=== PATIENT | male | born 1955 | race American Indian/Alaskan Native ===

== ENCOUNTER 2017-08-19 07:04 | Inpatient (IN) | payer MEDICARE ==
--- NOTE | 2017-08-19 08:05 | ED PDOC ---
HPI: Psych/Substance Abuse Time Seen by Provider: 08/19/17 07:48 Chief Complaint (Nursing): Psychiatric Evaluation Chief Complaint (Provider): Psychiatric Evaluation ED Caveat: Uncooperative History Per: Patient History/Exam Limitations: no limitations Onset/Duration Of Symptoms: Days (x 1) Current Symptoms Are (Timing): Still Present Additional History Per: Law Enforcement Additional Complaint(s): 61 year old male brought in by police for psychiatric evaluation, onset today. Pt called insurance company stating that he wanted to kill himself and came to ED for psychiatric evaluation. History is limited due to pt being uncooperative. PMD: none provided Past Medical History Reviewed: Historical Data, Nursing Documentation, Vital Signs Vital Signs: Last Vital Signs Temp 98.1 F 08/19/17 07:28 Pulse 76 08/19/17 07:28 Resp 17 08/19/17 07:28 BP 100/61 08/19/17 07:28 Pulse Ox 97 08/19/17 07:28 - Medical History PMH: Anxiety, Bipolar Disorder, Depression, Diabetes, HTN Denies: Hepatitis, HIV, Chronic Kidney Disease, Seizures, Sexually Transmitted Disease - Surgical History Surgical History: No Surg Hx - Family History Family History: States: Unknown Family Hx - Immunization History Hx Tetanus Toxoid Vaccination: No Hx Influenza Vaccination: No Hx Pneumococcal Vaccination: No - Home Medications Home Medications: Ambulatory Orders Medication Instructions Recorded ASA/Oxycodone HCl/Oxycodone 1 tab PO Q8 #10 tab 11/01/14 [Percodan 325 mg-4.5 mg-0.38 mg] - Allergies Allergies/Adverse Reactions: Allergies Allergy/AdvReac Type Severity Reaction Status Date / Time No Known Allergies Allergy Verified 08/19/17 07:32 Review of Systems ROS Statement: Except As Marked, All Systems Reviewed And Found Negative Psych: Positive for: Suicidal ideation Physical Exam - Reviewed Nursing Documentation Reviewed: Yes Vital Signs Reviewed: Yes - Physical Exam Appears: Positive for: Non-toxic, No Acute Distress Head Exam: Positive for: ATRAUMATIC, NORMOCEPHALIC Skin: Positive for: Normal Color, Warm, Dry Eye Exam: Positive for: EOMI, Normal appearance, PERRL Cardiovascular/Chest: Positive for: Regular Rate, Rhythm Respiratory: Positive for: Normal Breath Sounds Gastrointestinal/Abdominal: Positive for: Soft. Negative for: Tenderness Extremity: Positive for: Normal ROM Neurologic/Psych: Positive for: Alert, Other (Agitated and yelling. ). Negative for: Oriented - Laboratory Results Result Diagrams: 08/19/17 11:00 08/19/17 11:00 - ECG O2 Sat by Pulse Oximetry: 97 (RA) Pulse Ox Interpretation: Normal Medical Decision Making Medical Decision Making: Time: 07:54 Initial Plan: --EKG --Alcohol serum --CMP --Urine drug --CBC --Chest xray --Ativan 2 mg IM --Haldol 5 mg IM --1:1 observation Medical history is unknown, although patient states he has previous history of depression. He is currently awake and agitated, yelling at staff and trying to kick them. Reorientation was unsuccessful. Patient was restrained. Medically stable for psychiatric admission Time: 00:35 CXR FINDINGS: LUNGS: No active pulmonary disease. PLEURA: No significant pleural effusion identified, no pneumothorax apparent. CARDIOVASCULAR: Heart appears borderline enlarged. Aorta is ectatic and uncoiled. . OSSEOUS STRUCTURES: No significant abnormalities. VISUALIZED UPPER ABDOMEN: Normal. OTHER FINDINGS: None. IMPRESSION: No acute infiltrates Scribe Attestation: Documented by Matilda Fuller, acting as a scribe for Vega Gasca MD Provider Scribe Attestation: All medical record entries made by the Scribe were at my direction and personally dictated by me. I have reviewed the chart and agree that the record accurately reflects my personal performance of the history, physical exam, medical decision making, and the department course for this patient. I have also personally directed, reviewed, and agree with the discharge instructions and disposition. Disposition - Clinical Impression Clinical Impression: Bipolar disorder, Depression - Patient ED Disposition Is Patient to be Admitted: Yes - Disposition Disposition Time: 13:33 Condition: FAIR Forms: [employer] ([place]) - Pt Status Changed To: Hospital Disposition Of: Inpatient - Admit Certification Admit to Inpatient:: After my assessment, the patient will require hospitalization for at least two midnights. This is because of the severity of symptoms shown, intensity of services needed, and/or the medical risk in this patient being treated as an outpatient. - POA Present On Arrival: None
[2017-08-19 11:14] LABS: BASO % 0.7 % (0.0-2.0); EOS # 0.1 K/uL (0.0-0.7); EOS % 2.2 % (0.0-4.0); HEMOGLOBIN 14.3 g/dL (12.0-18.0); LYMPH # 2.3 K/uL (1.0-4.3); LYMPH % 40.3 % (20.0-40.0); MEAN CELL VOLUME 92.8 fl (80.0-94.0); MEAN CORPUSCULAR HEMOGLOBIN 31.6 pg (27.0-31.0); MONO # 0.4 K/uL (0.0-0.8); MONO % 7.2 % (0.0-10.0); NEUT # 2.8 K/uL (1.8-7.0); NEUT % 49.6 % (50.0-75.0); NRBC % 0.1 % (0.0-0.0); RBC 4.54 Mil/uL (4.40-5.90); RED CELL DISTRIBUTION WIDTH 14.1 % (11.5-14.5); WHITE BLOOD COUNT 5.6 K/uL (4.8-10.8)
[2017-08-19 11:24] LABS: ALB/GLOB RATIO 1.3 (1.0-2.1); ALBUMIN 4.1 g/dL (3.5-5.0); ALT/SGPT 56 U/L (21-72); AST/SGOT 37 U/L (17-59); BLOOD UREA NITROGEN 7 mg/dl (9-20); CALCIUM 8.7 mg/dL (8.4-10.2); GFR AFRICAN-AMERICAN > 60; GFR NON-AFRICAN AMERICAN > 60
--- NOTE | 2017-08-19 12:37 | RAD ---
HISTORY: cough COMPARISON: Comparison made with chest radiograph 11/01/2014. FINDINGS: LUNGS: No active pulmonary disease. PLEURA: No significant pleural effusion identified, no pneumothorax apparent. CARDIOVASCULAR: Heart appears borderline enlarged. Aorta is ectatic and uncoiled. . OSSEOUS STRUCTURES: No significant abnormalities. VISUALIZED UPPER ABDOMEN: Normal. OTHER FINDINGS: None. IMPRESSION: No acute infiltrates
[2017-08-19 14:28] LABS: BARBITURATES, UR NEGATIVE (NEGATIVE); BENZODIAZEPINES, UR NEGATIVE (NEGATIVE); OPIATES, UR NEGATIVE (NEGATIVE); PHENCYCLIDINE, UR NEGATIVE (NEGATIVE)
[2017-08-19 15:14] VITALS: O2SAT 98
--- NOTE | 2017-08-19 18:05 | PCM.BM ---
<Crystal Schmidt - Last Filed: 08/19/17 18:05> Treatment Plan Problems - Problems identified on initial assessmt HOPELESSNESS/HELPLESSNESS Date Initiated: 08/19/17 Time Initiated: 18:08 Assessment reference: NA Status: Active Treatment assets and liabiliti Patient Assests: cooperative, educated, resourceful, self-reliant, ADL independent, negotiates basic needs, cognitively intact Patient Liabilities: live alone, poor support system, relationship conflicts, dietary restrictions, medical problems - Milieu Protocol Maintain good personal hygiene: daily Encourage regular showers, daily Remind patient to perform daily oral care, daily Assist patient to perform ADL's Conduct patient checks and document Observation sheet: Q15 minutes Maintain personal safety: every shift Educate patient to report safety concerns to staff, every shift Monitor environment for contraband/sharps Medication safety: Monitor for expected outcome, potential side effects: every shift, Assess barriers to learning: every shift, Assess readiness for medication education: every shift <Delphine Camara - Last Filed: 08/20/17 16:37> Treatment assets and liabiliti Patient Assests: adapts well, cooperative, educated, insightful, resourceful, self-reliant, ADL independent, negotiates basic needs, good past tx response, cognitively intact Patient Liabilities: live alone, poor support system, relationship conflicts, dietary restrictions, medical problems Family Contact Family involvement: Famliy/SO not involved Family contact: Patient declines to allow family contact at present - Outside Agency Agency [facility] involvment: Other Agency contact name: Dr. Prashant Hernandez Agency contact number: [phone] - Goals for Treatment Patient goals for treatment: Patient to continue stabilization on 3NP through medication management and group/supportive therapy. Patient to be encouraged to attend groups regularly to promote self-awareness, socialization, and improve insight, coping skills and self-esteem. Patient to be provided with referral for appropriate level of aftercare to reduce risk of future hospitalizations and ensure safety in the community. Discharge/Continuing Care - Education Needs Education Needs: Patient Medication, Patient Coping Skills, Patient Anger Management skills, Patient Community resources, Patient Aftercare Safety Plan - Discharge Discharge Criteria: Tolerates medication w/o severe side effects, Free of Suicidal thoughts, Free of agitation, Normal sleep pattern, Ability to care for self, Reduction of target symptoms Discharge to:: Home <Roshan Edmonds Last Filed: 08/22/17 10:39> Discharge/Continuing Care - Additional Comments 08/22/17 10:39 Pt is goal and discharge oriented. Pt appeared to have self-awareness into his reyna. Pt was fixed on superficial matters such as his heat that he left on at home and the food/beverages that are available to him on the unit. Pt was able to speak about the self-work that he does at home with DBT and CBT techniques and a diary that he keeps. Pt reported that he will begin seeing a DBT practitioner later this month and readily recalled his next appointment with his psychiatrist. - Treatment Team Participation Discussed with Family/SO: No Was Patient/Family/SO present at Treatment Team Meeting: Yes <Maximo Franklin - Last Filed: 08/22/17 11:28> - Diagnosis (1) Depression Status: Acute Interventions: 08/22/17 11:28 psychotherapy pharmacotherapy
[2017-08-19] MEDS ORDERED: Alum-Mag Hydrox-Simethicone Susp (30 mL) PO PRN (20:09)
[2017-08-19] MEDS ORDERED: Magnesium Hydroxide Susp 30 ml UD PO PRN (20:09)
[2017-08-19] MEDS ORDERED: DiphenhydrAMINE 50 mg/ml Inj IM PRN (20:09)
[2017-08-19] MEDS ORDERED: Patient's Own Med (Metformin Er [Glucophage Xr] 750 mg) PO SCH (20:15)
[2017-08-19] MEDS: GlipiZIDE 5 mg SR Tab PO SCH (21:26)
[2017-08-19] MEDS: Insulin Lispro (humaLOG) 100 Units/ml Inj SC SCH (21:33)
[2017-08-19] MEDS ORDERED: Patient's Own Med (Zolpidem [Ambien] 10 MG) PO SCH (22:00)
--- NOTE | 2017-08-20 08:33 | CARD ---
APPROVED REPORT EKG Measurement Heart [id number] <Conclusion> Normal sinus rhythm Anteroseptal infarct, age undetermined Abnormal ECG artefact present-recommend repeat
[2017-08-20 08:41] LABS: T4 6.39 ug/dl (5.5-11.0)
[2017-08-20] MEDS: GlipiZIDE 5 mg SR Tab PO SCH ×2 (10:22→17:28)
[2017-08-20] MEDS: Insulin Lispro (humaLOG) 100 Units/ml Inj SC SCH ×4 (10:41→21:12)
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
[2017-08-20 19:30] VITALS: PULSE 69
[2017-08-21] MEDS: Insulin Lispro (humaLOG) 100 Units/ml Inj SC SCH ×4 (08:55→21:00)
[2017-08-21] MEDS: GlipiZIDE 5 mg SR Tab PO SCH ×2 (11:16→17:16)
[2017-08-21 13:48] VITALS: RESP 18
--- NOTE | 2017-08-21 14:36 | PCM.PYCHPN ---
Psychiatric Progress Note - Psychiatric Progress Note Patient seen today, length of contact: pt evaluated discussed with team chart reviewed Patient Chief Complaint: I know I have to practice my therapy skills Problems Identified/Issues Discussed: pt reported feeling less depressed, and less anxious. presenting with brighter affect,denied any current suicidal or homicidal ideations pt attending groups and interacting with other peers no reported side effects of medications Medical Problems: diagnosis of bipolar since age 21 previous suicidal attempts by cutting wrist and overdose inpatient hopitalizations at [place] and [facility] DSM 5 Symptoms Update: bipolar I disorder depressed Medication Change: Yes (increase abilify) Medical Record Reviewed: Yes Mental Status Examination - Cognitive Function Orientation: Person, Situation Attention: WNL Concentration: WNL Association: WNL Fund of Knowledge: WNL - Mood Mood: Depressed, Anxious - Affect Affect: Constricted - Speech Speech: Appropriate - Formal Thought Process Formal Thought Process: No Impairment, Circumstantial Psychotic Thoughts and Behaviors: denied any perceptual disturbances, non elicited - Suicidal Ideation Suicidal Ideation: No - Homicidal Ideation Homicidal Ideation: No Goal/Treatment Plan - Goal/Treatment Plan Need for Continued Stay: Severe depression anxiety, Discharge may exacerbated symptoms Progress Toward Problem(s) and Goals/Treatment Plan: Increase T ABILIFY to 5MG WITH PLAN TO UPTITRATE REMERON 30MG KLONOPIN 0.5MG TID GROUP AND SUPPORTIVE THERAPY Estimated Date of D/C: 08/22/17
[2017-08-21 18:07] VITALS: TEMP 97.9
[2017-08-22] MEDS: Insulin Lispro (humaLOG) 100 Units/ml Inj SC SCH ×2 (08:46→13:18)
[2017-08-22] MEDS: GlipiZIDE 5 mg SR Tab PO SCH (08:56)
[2017-08-22 09:03] VITALS: BP 156/104
--- NOTE | 2017-08-22 11:35 | PCM.PYCHDC ---
Mental Status Examination - Mental Status Examination Orientation: Person, Place, Situation Memory: Intact Mood: Neutral Affect: Broad Speech: Appropriate Attention: WNL Concentration: WNL Association: WNL Fund of Knowledge: WNL Formal Thought Process: No Impairment Description of patient's judgement and insight: good insight and fair judgment Psychotic Thoughts and Behaviors: denied any perceptual disturbances, non elicited Suicidal Ideation: No Current Homicidal Ideation?: No Discharge Summary - Discharge Note Reason for Hospitalization: pt with previous diagnosis of bipolar disorder since age 21, has four previos suicidal attempts and five inpatient hospitalizations, currently following up with private psychaiatrist in the city, pt reported has been increasingly depressed since the holidays feeling lonely and started to isolate himself, poor sleep increased anxiety , lack of pleasure, on day of evaluation pt started having suicidal thoughts to cut his wrist or shoot himself, pt started using alcohol, he then called [facility] help line , stating he has thoughts to commit suiide , police was called and pt was brought to ER in [place] pt was agitaated refusing to stay had to be physically restrained, blood alcohol level was 110 Laboratory Data: Abnormal Lab Results 08/21/17 08/21/17 08/22/17 16:33 20:55 06:38 POC Glucose (mg/dL) 115 H 111 H 139 H Consultations:: List each consultation separately and include: 1. Reason for request. 2. Findings. 3. Follow-up Summary of Hospital Course include:: 1. Description of specific treatment plan utilized for patients during their course of treatmen. 2. Summarize the time- course for resolution of acute symptoms and/or regressed behaviors. 3. Describe issues identified and worked on during hospitalization. 4. Describe medication utilized. 5. Describe medical problems identified and treated. 6. Reassessment of suicide risk Summary of Hospital Course: pt on admission was started on remeron , ambien and citalopram abilify was started as a mood stabilizer and was uptitrated to 5mg pt was cooperative with treatment, engaged in groups no reported side effects of medications discussed with pt skills and tools of DBT for suicidal thoughts and pt was able to verbalize coping plan On discharge, mental ststus was stable , pt denied suicidal or homicidal ideations denied perceptual disturbances pt was not danger to self or othersl - Diagnosis (1) Depression Current Visit: Yes Status: Acute - Final Diagnosis (DSM 5) Condition upon Discharge: FAIR Disposition: HOME/ ROUTINE Follow-up Treatment Plan: Increase T ABILIFY to 5MG WITH PLAN TO UPTITRATE REMERON 30MG KLONOPIN 0.5MG TID GROUP AND SUPPORTIVE THERAPY Prescriptions/Medication Reconciliation: ARIPiprazole [Abilify] 5 mg PO DAILY 30 Days #30 tab Citalopram [celEXA] 40 mg PO DAILY 30 Days #60 tab clonazePAM [Klonopin] 0.5 mg PO TID 3 Days #9 tab Mirtazapine [Remeron] 30 mg PO HS 30 Days #30 tab Zolpidem [Ambien] 10 mg PO HS 3 Days #3 tab - Antipsychotic Medications Pt discharged on 2 or more routine antipsychotic medications: No
== END 2017-08-22 14:26 | disposition home or self-care (01) | DRG 885 ==
LOC: H.ER 07:04 → H.ERHOLD 13:31 → H.PSYCH 15:59
PROVIDERS: ADMIT Psychiatry & Neurology Psychiatry; ATTEND Psychiatry & Neurology Psychiatry
PROC: GZHZZZZ Group Psychotherapy (ICD-10-PCS; principal; 2017-08-19)
PROC: GZ58ZZZ Individual Psychotherapy, Cognitive-Behavioral (ICD-10-PCS; 2017-08-19)
DX: F31.4 Bipolar disorder, current episode depressed, severe, without psychotic features (principal); R45.851 Suicidal ideations; E11.9 Type 2 diabetes mellitus without complications; I10 Essential (primary) hypertension; Z87.891 Personal history of nicotine dependence; I25.2 Old myocardial infarction; Z91.5 Personal history of self-harm

== ENCOUNTER 2018-12-22 05:33 | Observation (INO) | payer MEDICARE ==
--- NOTE | 2018-12-22 05:45 | ED PDOC ---
HPI: Psych/Substance Abuse Time Seen by Provider: 12/22/18 05:39 Chief Complaint (Nursing): Psychiatric Evaluation Chief Complaint (Provider): Suicidal ideation History Per: Patient History/Exam Limitations: no limitations Onset/Duration Of Symptoms: Hrs Current Symptoms Are (Timing): Still Present Suicide/Self Injury Attempted (Context): Ingestion Additional Complaint(s): 63yo male with extensive history including diabetes, hypertesion, bipolar disorder, depression, brought to ER by EMS for evaluation after patient reportedly attempted suicide. Patient currently admits to taking aspirin 1tab 81mg, citalopram 5 tabs 30mg, metoprolol 4 tabs 50 mg, rosvastatin 5 tabs 40mg, taken 2 hours prior to arrival in an attempt to kill himself. Patient states "I want to end it all, I am tired of being sick." He denies any chest pain, vomiting, shortness of breath, or other complaints. No homicidal ideation or hallucinations reported. PMD: [facility]. Carter String[facility] at [facility] Past Medical History Reviewed: Historical Data, Nursing Documentation, Vital Signs Vital Signs: Last Vital Signs Temp 97.8 F 12/22/18 05:37 Pulse 105 H 12/22/18 05:37 Resp 18 12/22/18 05:37 BP 141/79 12/22/18 05:37 Pulse Ox 96 12/22/18 05:37 Primary Care Provider: FAMILY PROVIDER,NO - Medical History PMH: Anxiety, Bipolar Disorder, Depression, Diabetes, HTN (since 1984) Denies: Hepatitis, HIV, Hypercholesterolemia, Chronic Kidney Disease, Seizures, Sexually Transmitted Disease - Surgical History Surgical History: No Surg Hx - Family History Family History: States: Unknown Family Hx - Social History Current smoker - smoking cessation education provided: No Alcohol: Occasional Drugs: Denies - Immunization History Hx Tetanus Toxoid Vaccination: No Hx Influenza Vaccination: No Hx Pneumococcal Vaccination: No - Home Medications Home Medications: Ambulatory Orders Medication Instructions Recorded Aspirin [Aspirin Chewable] 81 mg PO DAILY 08/19/17 Glipizide [Glipizide Xl] 5 mg PO BID 08/19/17 Metoprolol Tartrate [Lopressor] 50 mg PO DAILY 08/19/17 Mirtazapine [Remeron] 30 mg PO HS PRN 08/19/17 Rosuvastatin Calcium [Crestor] 40 mg PO DAILY 08/19/17 Zolpidem [Ambien] 10 mg PO HS PRN 08/19/17 metFORMIN [glucOPHAGE] 750 mg PO BID tab 08/22/17 ARIPiprazole [Abilify] 1 tab PO DAILY 12/22/18 ARIPiprazole [Abilify] 2 mg PO DAILY 12/22/18 Candesartan Cilexetil [Atacand] 12/22/18 Citalopram [celeXA] 3 tab PO DAILY 12/22/18 Clonazepam [Klonopin] 1 tab PO TID 12/22/18 Ezetimibe [Zetia] 1 tab PO DAILY 12/22/18 - Allergies Allergies/Adverse Reactions: Allergies Allergy/AdvReac Type Severity Reaction Status Date / Time No Known Allergies Allergy Verified 08/19/17 07:32 Review of Systems ROS Statement: Except As Marked, All Systems Reviewed And Found Negative Constitutional: Negative for: Fever, Chills Cardiovascular: Negative for: Chest Pain Respiratory: Negative for: Shortness of Breath Gastrointestinal: Negative for: Vomiting Psych: Positive for: Suicidal ideation Physical Exam - Reviewed Nursing Documentation Reviewed: Yes Vital Signs Reviewed: Yes - Physical Exam Appears: Positive for: Uncomfortable Head Exam: Positive for: ATRAUMATIC, NORMAL INSPECTION, NORMOCEPHALIC Skin: Positive for: Normal Color Eye Exam: Positive for: Normal appearance ENT: Positive for: Normal ENT Inspection Neck: Positive for: Supple Cardiovascular/Chest: Positive for: Regular Rate, Rhythm Respiratory: Positive for: Normal Breath Sounds. Negative for: Respiratory Distress Gastrointestinal/Abdominal: Positive for: Normal Exam, Soft Back: Positive for: Normal Inspection Extremity: Positive for: Normal ROM Neurological/Psych: Positive for: Awake, Alert, Mood/Affect (flat affect), interior design consultant II-XII. Negative for: Facial Droop - Laboratory Results Result Diagrams: 12/22/18 06:19 12/22/18 06:16 - ECG ECG: Positive for: Interpreted By Me, Viewed By Me ECG Rhythm: Positive for: Sinus Tachycardia Interpretation Of ECG: QTc 471 Rate: 102 O2 Sat by Pulse Oximetry: 96 (RA) Pulse Ox Interpretation: Normal - Radiology X-Ray: Read By Radiologist X-Ray Interpretation: No Acute Disease - Critical Care Total Time (In Min): 45 Medical Decision Making Medical Decision Making: Impression: Suicidal ideation, intentional ingestion Plan: -- RN Jeaneth to call poison control -- Labs -- Urinalysis -- 1:1 observation initiated for patient safety given suicidality 06:26 RN Jeaneth spoke with poison control, and states to check patient's lactate and Recommends symptomatic care and IV Fluids and observe. VBG order placed. 06:58 Called poison control again due to given elevated lactic acid (3.3) It could be elevated from metformin acidosis, no concern for sepsis per se - pt has no focal complaints of URI/UTI. as per poision control, will repeat lactate in a few hours. in interim, pt on tenter feeder and awake and alert, airway intact. 7:00 pt will get repeat vbg will admit to hospitalist (hospitalist accepted) for cardiac monitoring and observation on telemetry ekg shows nsr, pt slightly tachycardic . qtc on ekg 471 pt will be seen by psych on telemetry ------- Scribe Attestation: Documented by Bonnie Andrade, acting as a scribe for Melissa Rodríguez MD. Provider Scribe Attestation: All medical record entries made by the Scribe were at my direction and personally dictated by me. I have reviewed the chart and agree that the record a ccurately reflects my personal performance of the history, physical exam, medical decision making, and the department course for this patient. I have also personally directed, reviewed, and agree with the discharge instructions and disposition. Disposition - Clinical Impression Clinical Impression: Bipolar disorder, Intentional overdose of drug in tablet form - Patient ED Disposition Is Patient to be Admitted: Yes Counseled Patient/Family Regarding: Studies Performed, Diagnosis - Disposition Disposition: Transfer of Care Disposition Time: 07:00 Condition: GUARDED Patient Signed Over To: Magalys Gudino
[2018-12-22 06:23] LABS: EOS # 0.1 K/uL (0.0-0.7); EOS % 2.2 % (0.0-4.0); HEMOGLOBIN 15.3 g/dL (12.0-18.0); LYMPH # 1.7 K/uL (1.0-4.3); LYMPH % 37.3 % (20.0-40.0); MEAN CELL VOLUME 90.7 fl (80.0-94.0); MEAN CORPUSCULAR HEMOGLOBIN 30.3 pg (27.0-31.0); MEAN CORPUSCULAR HGB CONC 33.5 g/dL (33.0-37.0); MEAN PLATELET VOLUME 8.1 fl (7.2-11.7); MONO # 0.3 K/uL (0.0-0.8); MONO % 7.2 % (0.0-10.0); NEUT # 2.4 K/uL (1.8-7.0); NEUT % 52.3 % (50.0-75.0); NRBC % 0.2 % (0.0-0.0); RBC 5.04 Mil/uL (4.40-5.90); RED CELL DISTRIBUTION WIDTH 14.4 % (11.5-14.5); WHITE BLOOD COUNT 4.5 K/uL (4.8-10.8)
[2018-12-22] MEDS ORDERED: Sodium Chloride 0.9% 1,000 ML IV STA (06:26)
[2018-12-22 06:29] LABS: ALB/GLOB RATIO 1.3 (1.0-2.1); ALBUMIN 4.3 g/dL (3.5-5.0); ALT/SGPT 56 U/L (21-72); AST/SGOT 49 U/L (17-59); BLOOD UREA NITROGEN 11 mg/dl (9-20); CALCIUM 8.8 mg/dL (8.4-10.2); GFR NON-AFRICAN AMERICAN > 60
[2018-12-22 06:32] LABS: ACETAMINOPHEN < 10.0 ug/ml (10.0-30.0); SALICYLATE < 1.0 mg/dl
[2018-12-22 06:53] LABS: VENOUS BLOOD GAS BASE EXCESS -2.2 mmol/L (0.0-2.0); VENOUS BLOOD GAS PCO2 37 mmHg (40-60); VENOUS BLOOD GAS PO2 76 mm/Hg (30-55); VENOUS BLOOD PH 7.39 (7.32-7.43)
[2018-12-22] MEDS ORDERED: cefTRIAXone (Rocephin) 1 gm Inj ONE (06:53)
[2018-12-22] MEDS ORDERED: Azithromycin 500 MG IV IVPB ONE (06:54)
[2018-12-22 08:12] LABS: VENOUS BLOOD GAS BASE EXCESS -2.5 mmol/L (0.0-2.0); VENOUS BLOOD GAS PCO2 39 mmHg (40-60); VENOUS BLOOD GAS PO2 62 mm/Hg (30-55); VENOUS BLOOD PH 7.37 (7.32-7.43)
[2018-12-22 08:29] LABS: URINE BILIRUBIN NEGATIVE (NEGATIVE); URINE BLOOD NEGATIVE (NEGATIVE); URINE CLARITY CLEAR (Clear); URINE COLOR STRAW (YELLOW); URINE GLUCOSE (UA) >=500 mg/dL (NEGATIVE); URINE LEUKOCYTE ESTERASE NEG Leu/uL (Negative); URINE PROTEIN NEGATIVE (NEGATIVE); URINE UROBILINOGEN 0.2-1.0 mg/dL (0.2-1.0)
[2018-12-22 08:44] LABS: BENZODIAZEPINES, UR NEGATIVE (NEGATIVE)
[2018-12-22 08:46] LABS: BARBITURATES, UR NEGATIVE (NEGATIVE); OPIATES, UR NEGATIVE (NEGATIVE); PHENCYCLIDINE, UR NEGATIVE (NEGATIVE)
--- NOTE | 2018-12-22 10:26 | CP.PCM.HP ---
<Patricia Hough - Last Filed: 12/22/18 12:28> History of Present Illness - History of Present Illness History of Present Illness: 63 yr old M with PMHx of NIDDM type 2, Bipolar disorder Type 1, depression, hypertension and multiple suicide attempts brought into ED by EMS after attempted suicide. Patient states he is tired of dealing with his bipolar disorder and so he took multiple pills to end his life, he then called 911 to let them know that was the last time. Patient reports taking 1 tab of aspirin 81mg, 5 tabs of citalopram 30mg, 4 tabs of metoprolol 50 mg, 5 tabs of rosuvastatin 40mg. Patient denies SOB, weakness, nausea, vomiting, chest pain, visual changes or palpitations. Reports he feels well and would just like to see a psychiatrist. Patient states he missed his last visit with his psychiatrist and stopped taking his prescribed medication. -PMD: Dr. Carter Stringer at [facility] ([phone]) -Psychiatrist: Dr. Antelmo Hernandez ([phone]) -Hydrogenation Operator: Dr. Leo Scott ([phone]) PMHx: NIDDM type 2, Bipolar disorder Type 1, depression, hypertension and mul tiple suicide attempts SurgHx: none FMHx: non contributory SocHx: denies tobacco and drugs, occasional Etoh Medications: see med rec Allergies: NKDA ED course: BP 141/79 mmHg, pulse 105, Temp 97.8 F, Resp 18, O2 st 96% -EKG: Normal sinus rhythm, 97 bpm, no acute ST-T changes -CBC wnl, VBG lactate 3.3, repeat VBG lactate 2.8, rest of VBG wnl, CMP wnl -UA normal, serum alcohol 155, serum acetaminophen < 10; serum salicylates < 1.0, rest of Utox negative -Poison control was contacted: recommended IV fluids and supportive treatment -ED treatment: IV fluids Present on Admission - Present on Admission Any Indicators Present on Admission: No History of DVT/PE: No History of Uncontrolled Diabetes: No Urinary Catheter: No Decubitus Ulcer Present: No History Surgical Site Infection Following: None Review of Systems - Constitutional Constitutional: absent: Weakness - EENT Eyes: absent: Change in Vision Nose/Mouth/Throat: absent: Neck Pain - Cardiovascular Cardiovascular: absent: Chest Pain, Dyspnea - Respiratory Respiratory: absent: Hemoptysis - Gastrointestinal Gastrointestinal: absent: Nausea, Vomiting - Genitourinary Genitourinary: absent: Difficulty Urinating, Dysuria - Musculoskeletal Musculoskeletal: absent: Arthralgias, Numbness, Tingling - Integumentary Integumentary: absent: Swelling - Neurological Neurological: absent: Confusion - Psychiatric Psychiatric: Suicidal Ideation. absent: Anxiety, Homicidal Ideation - Endocrine Endocrine: absent: Fatigue, Palpitations - Hematologic/Lymphatic Hematologic: absent: Easy Bleeding, Easy Bruising Past Patient History - Past Social History Alcohol: Occasional Drugs: Denies - CARDIAC Hx Hypercholesterolemia: No Hx Hypertension: Yes (since 1984) - PULMONARY Hx Respiratory Disorders: No Hx Tuberculosis: No - NEUROLOGICAL Hx Seizures: No - HEENT Hx HEENT Problems: No - RENAL Hx Chronic Kidney Disease: No - ENDOCRINE/METABOLIC Hx Endocrine Disorders: Yes Hx Diabetes Mellitus Type 2: Yes (1979) - HEMATOLOGICAL/ONCOLOGICAL Hx Human Immunodeficiency Virus (HIV): No - INTEGUMENTARY Hx Dermatological Problems: No - MUSCULOSKELETAL/RHEUMATOLOGICAL Hx Musculoskeletal Disorders: No - GASTROINTESTINAL Hx Gastrointestinal Disorders: No - GENITOURINARY/GYNECOLOGICAL Hx Sexually Transmitted Disorders: No - PSYCHIATRIC Hx Anxiety: Yes Hx Bipolar Disorder: Yes Hx Depression: Yes - SURGICAL HISTORY Hx Surgeries: Yes Hx Cardiac Catheterization: Yes - ANESTHESIA Hx Anesthesia: Yes Meds Allergies/Adverse Reactions: Allergies Allergy/AdvReac Type Severity Reaction Status Date / Time No Known Allergies Allergy Verified 08/19/17 07:32 Physical Exam - Constitutional Appears: No Acute Distress - Head Exam Head Exam: NORMAL INSPECTION - Eye Exam Eye Exam: EOMI - ENT Exam ENT Exam: Mucous Membranes Moist - Neck Exam Neck exam: Positive for: Full Rom. Negative for: Lymphadenopathy - Respiratory Exam Respiratory Exam: Clear to Auscultation Bilateral, NORMAL BREATHING PATTERN - Cardiovascular Exam Cardiovascular Exam: REGULAR RHYTHM, +S1, +S2 - GI/Abdominal Exam GI & Abdominal Exam: Normal Bowel Sounds, Soft (obese). absent: Tenderness - Extremities Exam Extremities exam: Positive for: full ROM. Negative for: calf tenderness, pedal edema - Neurological Exam Neurological exam: Alert, CN II-XII Intact, Oriented x3 - Psychiatric Exam Psychiatric exam: Depressed, Flat Affect, Suicidal Ideation - Skin Skin Exam: Dry, Normal Color, Warm Results - Vital Signs Recent Vital Signs: Last Vital Signs Temp 98.8 F 12/22/18 08:50 Pulse 80 12/22/18 08:50 Resp 17 12/22/18 08:50 BP 127/81 12/22/18 08:50 Pulse Ox 95 12/22/18 08:50 - Labs Result Diagrams: 12/22/18 06:19 12/22/18 06:16 Labs: Laboratory Results - last 24 hr 12/22/18 12/22/18 12/22/18 06:11 06:16 06:16 WBC RBC Hgb Hct MCV MCH MCHC RDW Plt Count MPV Neut % (Auto) Lymph % (Auto) [place] % (Auto) Eos % (Auto) Baso % (Auto) Neut # (Auto) Lymph # (Auto) [place] # (Auto) Eos # (Auto) Baso # (Auto) pO2 VBG pH VBG pCO2 VBG HCO3 VBG Total CO2 VBG O2 Sat (Calc) VBG Base Excess VBG Potassium Glucose Lactate FiO2 Sodium 139 Potassium 4.3 Chloride 102 Carbon Dioxide 21 L Anion Gap 20 BUN 11 Creatinine 0.8 Est GFR ( Amer) > 60 Est GFR (Non-Af Amer) > 60 POC Glucose (mg/dL) 312 H Random Glucose 295 H Calcium 8.8 Total Bilirubin 0.3 AST 49 ALT 56 Alkaline Phosphatase 82 Total Protein 7.6 Albumin 4.3 Globulin 3.2 Albumin/Globulin Ratio 1.3 Triglycerides Cholesterol LDL Cholesterol Direct HDL Cholesterol TSH 3rd Generation Venous Blood Potassium Urine Color Urine Clarity Urine pH Ur Specific [place] Urine Protein Urine Glucose (UA) Urine Ketones Urine Blood Urine Nitrate Urine Bilirubin Urine Urobilinogen Ur Leukocyte Esterase Urine RBC (Auto) Urine Microscopic WBC Salicylates < 1.0 Urine Opiates Screen Urine Methadone Screen Acetaminophen < 10.0 L Ur Barbiturates Screen Ur Phencyclidine Scrn Ur Amphetamines Screen U Benzodiazepines Scrn U Oth Cocaine Metabols U Cannabinoids Screen Alcohol, Quantitative 155 H 12/22/18 12/22/18 12/22/18 06:19 06:49 07:47 WBC 4.5 L RBC 5.04 Hgb 15.3 Hct 45.7 MCV 90.7 D MCH 30.3 MCHC 33.5 RDW 14.4 Plt Count 201 MPV 8.1 Neut % (Auto) 52.3 Lymph % (Auto) 37.3 Winn % (Auto) 7.2 Eos % (Auto) 2.2 Baso % (Auto) 1.0 Neut # (Auto) 2.4 Lymph # (Auto) 1.7 Winn # (Auto) 0.3 Eos # (Auto) 0.1 Baso # (Auto) 0.0 pO2 76 H 62 H VBG pH 7.39 7.37 VBG pCO2 37 L 39 L VBG HCO3 23.1 22.7 VBG Total CO2 23.5 23.7 VBG O2 Sat (Calc) 97.4 H 94.3 H VBG Base Excess -2.2 L -2.5 L VBG Potassium 4.4 4.2 Glucose 303 H 268 H Lactate 3.3 H 2.8 H FiO2 21.0 21.0 Sodium 134.0 137.0 Potassium Chloride 100.0 103.0 Carbon Dioxide Anion Gap BUN Creatinine Est GFR ( Amer) Est GFR (Non-Af Amer) POC Glucose (mg/dL) Random Glucose Calcium Total Bilirubin AST ALT Alkaline Phosphatase Total Protein Albumin Globulin Albumin/Globulin Ratio Triglycerides Cholesterol LDL Cholesterol Direct HDL Cholesterol TSH 3rd Generation Venous Blood Potassium 4.4 4.2 Urine Color Urine Clarity Urine pH Ur Specific [place] Urine Protein Urine Glucose (UA) Urine Ketones Urine Blood Urine Nitrate Urine Bilirubin Urine Urobilinogen Ur Leukocyte Esterase Urine RBC (Auto) Urine Microscopic WBC Salicylates Urine Opiates Screen Urine Methadone Screen Acetaminophen Ur Barbiturates Screen Ur Phencyclidine Scrn Ur Amphetamines Screen U Benzodiazepines Scrn U Oth Cocaine Metabols U Cannabinoids Screen Alcohol, Quantitative 12/22/18 12/22/18 12/22/18 08:01 08:01 09:30 WBC RBC Hgb Hct MCV MCH MCHC RDW Plt Count MPV Neut % (Auto) Lymph % (Auto) [place] % (Auto) Eos % (Auto) Baso % (Auto) Neut # (Auto) Lymph # (Auto) [place] # (Auto) Eos # (Auto) Baso # (Auto) pO2 VBG pH VBG pCO2 VBG HCO3 VBG Total CO2 VBG O2 Sat (Calc) VBG Base Excess VBG Potassium Glucose Lactate FiO2 Sodium Potassium Chloride Carbon Dioxide Anion Gap BUN Creatinine Est GFR ( Amer) Est GFR (Non-Af Amer) POC Glucose (mg/dL) Random Glucose Calcium Total Bilirubin AST ALT Alkaline Phosphatase Total Protein Albumin Globulin Albumin/Globulin Ratio Triglycerides 283 H Cholesterol 140 LDL Cholesterol Direct 71 HDL Cholesterol 34 TSH 3rd Generation 1.59 Venous Blood Potassium Urine Color Straw Urine Clarity Clear Urine pH 6.0 Ur Specific [place] 1.014 Urine Protein Negative Urine Glucose (UA) >=500 Urine Ketones Trace Urine Blood Negative Urine Nitrate Negative Urine Bilirubin Negative Urine Urobilinogen 0.2-1.0 Ur Leukocyte Esterase Neg Urine RBC (Auto) 1 Urine Microscopic WBC < 1 Salicylates Urine Opiates Screen Negative Urine Methadone Screen Negative Acetaminophen Ur Barbiturates Screen Negative Ur Phencyclidine Scrn Negative Ur Amphetamines Screen Negative U Benzodiazepines Scrn Negative U Oth Cocaine Metabols Negative U Cannabinoids Screen Negative Alcohol, Quantitative Assessment & Plan - Assessment and Plan (Free Text) Assessment: 63 yr old M with PMHx of NIDDM type 2, Bipolar disorder Type 1, depression, hypertension and multiple suicide attempts brought into ED by EMS after attempted suicide. Patient reports taking 1 tab of aspirin 81mg, 5 tabs of citalopram 30mg, 4 tabs of metoprolol 50 mg, 5 tabs of rosuvastatin 40mg. Patient denies SOB, weakness, nausea, vomiting, chest pain, visual changes or palpitations. Patient had elevated lactic acid on admission, pending repeat levels for discharge to psych. 1. Elevated lactic acid -acute, improving, may be secondary to metformin vs prescription medication overdose -VBG lactate 3.3, repeat VBG lactate 2.8, rest of VBG wnl, CMP wnl -admit to telemetry, color television console monitor, IV fluids -f/u lactic acid level 2. Suicide attempt -acute -admit to telemetry -1:1 for patient safety -psych consult 3. NIDDM type 2 -chronic -lipid panel -blood glucose accuchecks ACHS -Insulin Lispro coverage scale low dose ACHS -hypoglycemia protocol in place -moderate carbohydrate diet -f/u HbA1c 4. Bipolar disorder Type 1, depression -chronic, uncontrolled -psych consult: resume home medications; admit to psych once medically cleared 5. Hypertension -chronic, controlled -home medications held for now -monitor BP 6. DVT prophylaxis -patient ambulates - Date & Time Date: 12/22/18 Time: 07:30 <Adam Menendez - Last Filed: 12/22/18 14:41> Results - Vital Signs Recent Vital Signs: Last Vital Signs Temp 98.5 F 12/22/18 12:00 Pulse 80 12/22/18 12:00 Resp 16 12/22/18 12:00 BP 139/85 12/22/18 12:00 Pulse Ox 95 12/22/18 12:00 - Labs Result Diagrams: 12/22/18 06:19 12/22/18 06:16 Labs: Laboratory Results - last 24 hr 12/22/18 12/22/18 12/22/18 06:11 06:16 06:16 WBC RBC Hgb Hct MCV MCH MCHC RDW Plt Count MPV Neut % (Auto) Lymph % (Auto) [place] % (Auto) Eos % (Auto) Baso % (Auto) Neut # (Auto) Lymph # (Auto) [place] # (Auto) Eos # (Auto) Baso # (Auto) pO2 VBG pH VBG pCO2 VBG HCO3 VBG Total CO2 VBG O2 Sat (Calc) VBG Base Excess VBG Potassium Glucose Lactate FiO2 Sodium 139 Potassium 4.3 Chloride 102 Carbon Dioxide 21 L Anion Gap 20 BUN 11 Creatinine 0.8 Est GFR ( Amer) > 60 Est GFR (Non-Af Amer) > 60 POC Glucose (mg/dL) 312 H Random Glucose 295 H Lactic Acid Calcium 8.8 Total Bilirubin 0.3 AST 49 ALT 56 Alkaline Phosphatase 82 Total Protein 7.6 Albumin 4.3 Globulin 3.2 Albumin/Globulin Ratio 1.3 Triglycerides Cholesterol LDL Cholesterol Direct HDL Cholesterol TSH 3rd Generation Venous Blood Potassium Urine Color Urine Clarity Urine pH Ur Specific [place] Urine Protein Urine Glucose (UA) Urine Ketones Urine Blood Urine Nitrate Urine Bilirubin Urine Urobilinogen Ur Leukocyte Esterase Urine RBC (Auto) Urine Microscopic WBC Salicylates < 1.0 Urine Opiates Screen Urine Methadone Screen Acetaminophen < 10.0 L Ur Barbiturates Screen Ur Phencyclidine Scrn Ur Amphetamines Screen U Benzodiazepines Scrn U Oth Cocaine Metabols U Cannabinoids Screen Alcohol, Quantitative 155 H 12/22/18 12/22/18 12/22/18 06:19 06:49 07:47 WBC 4.5 L RBC 5.04 Hgb 15.3 Hct 45.7 MCV 90.7 D MCH 30.3 MCHC 33.5 RDW 14.4 Plt Count 201 MPV 8.1 Neut % (Auto) 52.3 Lymph % (Auto) 37.3 Winn % (Auto) 7.2 Eos % (Auto) 2.2 Baso % (Auto) 1.0 Neut # (Auto) 2.4 Lymph # (Auto) 1.7 Winn # (Auto) 0.3 Eos # (Auto) 0.1 Baso # (Auto) 0.0 pO2 76 H 62 H VBG pH 7.39 7.37 VBG pCO2 37 L 39 L VBG HCO3 23.1 22.7 VBG Total CO2 23.5 23.7 VBG O2 Sat (Calc) 97.4 H 94.3 H VBG Base Excess -2.2 L -2.5 L VBG Potassium 4.4 4.2 Glucose 303 H 268 H Lactate 3.3 H 2.8 H FiO2 21.0 21.0 Sodium 134.0 137.0 Potassium Chloride 100.0 103.0 Carbon Dioxide Anion Gap BUN Creatinine Est GFR ( Amer) Est GFR (Non-Af Amer) POC Glucose (mg/dL) Random Glucose Lactic Acid Calcium Total Bilirubin AST ALT Alkaline Phosphatase Total Protein Albumin Globulin Albumin/Globulin Ratio Triglycerides Cholesterol LDL Cholesterol Direct HDL Cholesterol TSH 3rd Generation Venous Blood Potassium 4.4 4.2 Urine Color Urine Clarity Urine pH Ur Specific [place] Urine Protein Urine Glucose (UA) Urine Ketones Urine Blood Urine Nitrate Urine Bilirubin Urine Urobilinogen Ur Leukocyte Esterase Urine RBC (Auto) Urine Microscopic WBC Salicylates Urine Opiates Screen Urine Methadone Screen Acetaminophen Ur Barbiturates Screen Ur Phencyclidine Scrn Ur Amphetamines Screen U Benzodiazepines Scrn U Oth Cocaine Metabols U Cannabinoids Screen Alcohol, Quantitative 12/22/18 12/22/18 12/22/18 08:01 08:01 09:30 WBC RBC Hgb Hct MCV MCH MCHC RDW Plt Count MPV Neut % (Auto) Lymph % (Auto) [place] % (Auto) Eos % (Auto) Baso % (Auto) Neut # (Auto) Lymph # (Auto) [place] # (Auto) Eos # (Auto) Baso # (Auto) pO2 VBG pH VBG pCO2 VBG HCO3 VBG Total CO2 VBG O2 Sat (Calc) VBG Base Excess VBG Potassium Glucose Lactate FiO2 Sodium Potassium Chloride Carbon Dioxide Anion Gap BUN Creatinine Est GFR ( Amer) Est GFR (Non-Af Amer) POC Glucose (mg/dL) Random Glucose Lactic Acid Calcium Total Bilirubin AST ALT Alkaline Phosphatase Total Protein Albumin Globulin Albumin/Globulin Ratio Triglycerides 283 H Cholesterol 140 LDL Cholesterol Direct 71 HDL Cholesterol 34 TSH 3rd Generation 1.59 Venous Blood Potassium Urine Color Straw Urine Clarity Clear Urine pH 6.0 Ur Specific [place] 1.014 Urine Protein Negative Urine Glucose (UA) >=500 Urine Ketones Trace Urine Blood Negative Urine Nitrate Negative Urine Bilirubin Negative Urine Urobilinogen 0.2-1.0 Ur Leukocyte Esterase Neg Urine RBC (Auto) 1 Urine Microscopic WBC < 1 Salicylates Urine Opiates Screen Negative Urine Methadone Screen Negative Acetaminophen Ur Barbiturates Screen Negative Ur Phencyclidine Scrn Negative Ur Amphetamines Screen Negative U Benzodiazepines Scrn Negative U Oth Cocaine Metabols Negative U Cannabinoids Screen Negative Alcohol, Quantitative 12/22/18 12/22/18 11:08 12:45 WBC RBC Hgb Hct MCV MCH MCHC RDW Plt Count MPV Neut % (Auto) Lymph % (Auto) [place] % (Auto) Eos % (Auto) Baso % (Auto) Neut # (Auto) Lymph # (Auto) Winn # (Auto) Eos # (Auto) Baso # (Auto) pO2 VBG pH VBG pCO2 VBG HCO3 VBG Total CO2 VBG O2 Sat (Calc) VBG Base Excess VBG Potassium Glucose Lactate FiO2 Sodium Potassium Chloride Carbon Dioxide Anion Gap BUN Creatinine Est GFR ( Amer) Est GFR (Non-Af Amer) POC Glucose (mg/dL) 226 H Random Glucose Lactic Acid 1.7 Calcium Total Bilirubin AST ALT Alkaline Phosphatase Total Protein Albumin Globulin Albumin/Globulin Ratio Triglycerides Cholesterol LDL Cholesterol Direct HDL Cholesterol TSH 3rd Generation Venous Blood Potassium Urine Color Urine Clarity Urine pH Ur Specific [place] Urine Protein Urine Glucose (UA) Urine Ketones Urine Blood Urine Nitrate Urine Bilirubin Urine Urobilinogen Ur Leukocyte Esterase Urine RBC (Auto) Urine Microscopic WBC Salicylates Urine Opiates Screen Urine Methadone Screen Acetaminophen Ur Barbiturates Screen Ur Phencyclidine Scrn Ur Amphetamines Screen U Benzodiazepines Scrn U Oth Cocaine Metabols U Cannabinoids Screen Alcohol, Quantitative Attending/Attestation - Attestation I have personally seen and examined this patient.: Yes I have fully participated in the care of the patient.: Yes I have reviewed all pertinent clinical information: Yes Notes (Text): 12/22/18 14:40 Patient seen and examined with resident. Case discussed and agreed with assessment and plan of management.
[2018-12-22] MEDS: Sodium Chloride 0.9% 1,000 ML IV SCH ×2 (11:00→20:30)
--- NOTE | 2018-12-22 11:11 | CP.PCM.CON ---
History of Present Illness - History of Present Illness History of Present Illness: Psychiatry consult note CC: "I tried to kill myself." HPI: 63 yo male w/ h/o Bipolar Disorder and Borderline Personality Disorder, pre sents s/p intentional overdose of Aspirin, Celexa, Metoprolol, Rosvastatin with intent to kill himself. He reports worsening depression, anxiety, mood lability, irritability, poor sleep/appetite and hopelessness. He reports that he has not been able to take Abilify for the past 2 months due to the cost of the medication. When asked if he hears AH, he said that he can not answer that question because he does not trust the assembly instructions writer. He is agreeable to inpatient psychiatric admission at this time. A + O x 4. PMHx: DM, HTN, HLD, HTN ALL: NKDA PPHx: Outpatient psychiatric treatment w/ Dr. Prashant Hernandez; reports that he is prescribed Celexa 40 mg PO Daily, Klonopin 1 mg PO TID, Remeron 30 mg PO HS, Ambien 10 mg PO HS PRN insomnia and Abilify 2 mg PO HS; He reports >10 psychiatric hospitalizations and >10 suicide attempts in the past; he also has a history of treatment w/ Depakote and [place], but he refuses to take these medications due to adverse reactions in the past SHx: Lives alone, denies drugs/etoh/cig use Impression: 63 yo male w/ h/o Bipolar Disorder and BPD, recently attempted suicide. Patient needs acute psychiatric admission for treatment and stabilization. -If medically safe, restart Klonopin to prevent benzo withdrawal -Restart Celexa and Remeron when it is medically safe -Start Risperdal 0.5 mg PO HS -Voluntary psychiatric admission when patient is medically stable Past Patient History - Past Social History Alcohol: Occasional Drugs: Denies - CARDIAC Hx Hypercholesterolemia: No Hx Hypertension: Yes (since 1984) - PULMONARY Hx Respiratory Disorders: No Hx Tuberculosis: No - NEUROLOGICAL Hx Seizures: No - HEENT Hx HEENT Problems: No - RENAL Hx Chronic Kidney Disease: No - ENDOCRINE/METABOLIC Hx Endocrine Disorders: Yes Hx Diabetes Mellitus Type 2: Yes (1979) - HEMATOLOGICAL/ONCOLOGICAL Hx Human Immunodeficiency Virus (HIV): No - INTEGUMENTARY Hx Dermatological Problems: No - MUSCULOSKELETAL/RHEUMATOLOGICAL Hx Musculoskeletal Disorders: No - GASTROINTESTINAL Hx Gastrointestinal Disorders: No - GENITOURINARY/GYNECOLOGICAL Hx Sexually Transmitted Disorders: No - PSYCHIATRIC Hx Anxiety: Yes Hx Bipolar Disorder: Yes Hx Depression: Yes - SURGICAL HISTORY Hx Surgeries: Yes Hx Cardiac Catheterization: Yes - ANESTHESIA Hx Anesthesia: Yes Meds Allergies/Adverse Reactions: Allergies Allergy/AdvReac Type Severity Reaction Status Date / Time No Known Allergies Allergy Verified 08/19/17 07:32 - Medications Medications: Current Medications Acetaminophen (Tylenol 325mg Tab) 650 mg PO Q6 PRN PRN Reason: Fever >100.4 F Aspirin (Aspirin Chewable) 81 mg PO DAILY [facility] Sodium Chloride (Sodium Chloride 0.9%) 1,000 mls @ 150 mls/hr IV .[id number] GUCCI Stop: 12/23/18 09:27 Insulin Human Lispro (Humalog) 0 units SC ACHS GUCCI; Protocol Ondansetron HCl (Zofran Inj) 4 mg IVP Q6 PRN PRN Reason: Nausea/Vomiting Pantoprazole Sodium (Protonix Ec Tab) 40 mg PO DAILY [facility] Results - Vital Signs Recent Vital Signs: Last Vital Signs Temp 98.8 F 12/22/18 08:50 Pulse 80 12/22/18 08:50 Resp 17 12/22/18 08:50 BP 127/81 12/22/18 08:50 Pulse Ox 95 12/22/18 08:50 - Labs Result Diagrams: 12/22/18 06:19 12/22/18 06:16 Labs: Laboratory Results - last 24 hr 12/22/18 12/22/18 12/22/18 06:11 06:16 06:16 WBC RBC Hgb Hct MCV MCH MCHC RDW Plt Count MPV Neut % (Auto) Lymph % (Auto) [place] % (Auto) Eos % (Auto) Baso % (Auto) Neut # (Auto) Lymph # (Auto) [place] # (Auto) Eos # (Auto) Baso # (Auto) pO2 VBG pH VBG pCO2 VBG HCO3 VBG Total CO2 VBG O2 Sat (Calc) VBG Base Excess VBG Potassium Glucose Lactate FiO2 Sodium 139 Potassium 4.3 Chloride 102 Carbon Dioxide 21 L Anion Gap 20 BUN 11 Creatinine 0.8 Est GFR ( Amer) > 60 Est GFR (Non-Af Amer) > 60 POC Glucose (mg/dL) 312 H Random Glucose 295 H Calcium 8.8 Total Bilirubin 0.3 AST 49 ALT 56 Alkaline Phosphatase 82 Total Protein 7.6 Albumin 4.3 Globulin 3.2 Albumin/Globulin Ratio 1.3 Triglycerides Cholesterol LDL Cholesterol Direct HDL Cholesterol TSH 3rd Generation Venous Blood Potassium Urine Color Urine Clarity Urine pH Ur Specific [place] Urine Protein Urine Glucose (UA) Urine Ketones Urine Blood Urine Nitrate Urine Bilirubin Urine Urobilinogen Ur Leukocyte Esterase Urine RBC (Auto) Urine Microscopic WBC Salicylates < 1.0 Urine Opiates Screen Urine Methadone Screen Acetaminophen < 10.0 L Ur Barbiturates Screen Ur Phencyclidine Scrn Ur Amphetamines Screen U Benzodiazepines Scrn U Oth Cocaine Metabols U Cannabinoids Screen Alcohol, Quantitative 155 H 12/22/18 12/22/18 12/22/18 06:19 06:49 07:47 WBC 4.5 L RBC 5.04 Hgb 15.3 Hct 45.7 MCV 90.7 D MCH 30.3 MCHC 33.5 RDW 14.4 Plt Count 201 MPV 8.1 Neut % (Auto) 52.3 Lymph % (Auto) 37.3 [place] % (Auto) 7.2 Eos % (Auto) 2.2 Baso % (Auto) 1.0 Neut # (Auto) 2.4 Lymph # (Auto) 1.7 [place] # (Auto) 0.3 Eos # (Auto) 0.1 Baso # (Auto) 0.0 pO2 76 H 62 H VBG pH 7.39 7.37 VBG pCO2 37 L 39 L VBG HCO3 23.1 22.7 VBG Total CO2 23.5 23.7 VBG O2 Sat (Calc) 97.4 H 94.3 H VBG Base Excess -2.2 L -2.5 L VBG Potassium 4.4 4.2 Glucose 303 H 268 H Lactate 3.3 H 2.8 H FiO2 21.0 21.0 Sodium 134.0 137.0 Potassium Chloride 100.0 103.0 Carbon Dioxide Anion Gap BUN Creatinine Est GFR ( Amer) Est GFR (Non-Af Amer) POC Glucose (mg/dL) Random Glucose Calcium Total Bilirubin AST ALT Alkaline Phosphatase Total Protein Albumin Globulin Albumin/Globulin Ratio Triglycerides Cholesterol LDL Cholesterol Direct HDL Cholesterol TSH 3rd Generation Venous Blood Potassium 4.4 4.2 Urine Color Urine Clarity Urine pH Ur Specific [place] Urine Protein Urine Glucose (UA) Urine Ketones Urine Blood Urine Nitrate Urine Bilirubin Urine Urobilinogen Ur Leukocyte Esterase Urine RBC (Auto) Urine Microscopic WBC Salicylates Urine Opiates Screen Urine Methadone Screen Acetaminophen Ur Barbiturates Screen Ur Phencyclidine Scrn Ur Amphetamines Screen U Benzodiazepines Scrn U Oth Cocaine Metabols U Cannabinoids Screen Alcohol, Quantitative 12/22/18 12/22/18 12/22/18 08:01 08:01 09:30 WBC RBC Hgb Hct MCV MCH MCHC RDW Plt Count MPV Neut % (Auto) Lymph % (Auto) [place] % (Auto) Eos % (Auto) Baso % (Auto) Neut # (Auto) Lymph # (Auto) [place] # (Auto) Eos # (Auto) Baso # (Auto) pO2 VBG pH VBG pCO2 VBG HCO3 VBG Total CO2 VBG O2 Sat (Calc) VBG Base Excess VBG Potassium Glucose Lactate FiO2 Sodium Potassium Chloride Carbon Dioxide Anion Gap BUN Creatinine Est GFR ( Amer) Est GFR (Non-Af Amer) POC Glucose (mg/dL) Random Glucose Calcium Total Bilirubin AST ALT Alkaline Phosphatase Total Protein Albumin Globulin Albumin/Globulin Ratio Triglycerides 283 H Cholesterol 140 LDL Cholesterol Direct 71 HDL Cholesterol 34 TSH 3rd Generation 1.59 Venous Blood Potassium Urine Color Straw Urine Clarity Clear Urine pH 6.0 Ur Specific [place] 1.014 Urine Protein Negative Urine Glucose (UA) >=500 Urine Ketones Trace Urine Blood Negative Urine Nitrate Negative Urine Bilirubin Negative Urine Urobilinogen 0.2-1.0 Ur Leukocyte Esterase Neg Urine RBC (Auto) 1 Urine Microscopic WBC < 1 Salicylates Urine Opiates Screen Negative Urine Methadone Screen Negative Acetaminophen Ur Barbiturates Screen Negative Ur Phencyclidine Scrn Negative Ur Amphetamines Screen Negative U Benzodiazepines Scrn Negative U Oth Cocaine Metabols Negative U Cannabinoids Screen Negative Alcohol, Quantitative
[2018-12-22] MEDS: Insulin Lispro (humaLOG) 100 Units/ml Inj SC SCH ×4 (12:51→21:07)
[2018-12-22] MEDS ORDERED: Dextrose 50% SYRINGE Inj (50 ml) IV PRN (13:08)
[2018-12-22] MEDS ORDERED: Glucagon Recombinant 1 mg Inj IM PRN (13:08)
--- NOTE | 2018-12-22 13:47 | RAD ---
Date of service: 12/22/2018 HISTORY: Overdose. COMPARISON: 08/19/2017. FINDINGS: LUNGS: No active pulmonary disease. PLEURA: No significant pleural effusion identified, no pneumothorax apparent. CARDIOVASCULAR: No atherosclerotic calcification present Normal. OSSEOUS STRUCTURES: No significant abnormalities. Healed posterior lateral right rib fractures. VISUALIZED UPPER ABDOMEN: Normal. OTHER FINDINGS: None. IMPRESSION: No active disease. No significant interval change compared to the prior examination(s).
[2018-12-22 21:51] VITALS: BP 129/97; RESP 18; TEMP 98.5
[2018-12-22 23:45] VITALS: PULSE 102; O2SAT 96
[2018-12-23] MEDS ORDERED: Pantoprazole 40 mg EC Tab PO SCH (09:00)
== END 2018-12-22 21:45 ==
LOC: H.ER 05:33 → INTOOBSV 06:58 → H.ERHOLD 06:58 → H.ICU/CCU 08:47
PROVIDERS: ADMIT Internal Medicine; ATTEND Internal Medicine
DX: T39.012A Poisoning by aspirin, intentional self-harm, initial encounter (principal); F31.30 Bipolar disorder, current episode depressed, mild or moderate severity, unspecified; I10 Essential (primary) hypertension; E11.9 Type 2 diabetes mellitus without complications; T43.222A Poisoning by selective serotonin reuptake inhibitors, intentional self-harm, initial encounter; T44.7X2A Poisoning by beta-adrenoreceptor antagonists, intentional self-harm, initial encounter; T46.6X2A Poisoning by antihyperlipidemic and antiarteriosclerotic drugs, intentional self-harm, initial encounter; E78.5 Hyperlipidemia, unspecified; F41.9 Anxiety disorder, unspecified; Z79.84 Long term (current) use of oral hypoglycemic drugs; R79.89 Other specified abnormal findings of blood chemistry
CPT/HCPCS: 71045; 80053; 80061; 80320; 80324; 80329; 80345; 80346; 80349; 80353; 80358; 80361; 81003; 82803; 82948; 83036; 83605; 83992; 84443; 85025; 87081; 87086; 96360; 99285; G0378; J7030

== ENCOUNTER 2018-12-22 21:57 | Inpatient (IN) | payer MEDICARE ==
[2018-12-22 22:00] VITALS: BMI 35.1
[2018-12-22] MEDS ORDERED: Alum-Mag Hydrox-Simethicone Susp (30 mL) PO PRN (22:20)
[2018-12-22] MEDS ORDERED: Magnesium Hydroxide Susp 30 ml UD PO PRN (22:20)
[2018-12-22] MEDS ORDERED: Bismuth Subsalicylate 262 mg/15 ml Sus (240 ml) PO PRN (22:20)
--- NOTE | 2018-12-22 22:34 | PCM.BM ---
<Derian Wisdom - Last Filed: 12/22/18 22:32> Treatment Plan Problems - Problems identified on initial assessmt Suicidal ideation Date Initiated: 12/22/18 Time Initiated: 22:32 Assessment reference: NA Status: Active Hopelessness/Helplessness Date Initiated: 12/22/18 Time Initiated: 22:32 Assessment reference: NA Status: Active Altered Sleep Patterns Date Initiated: 12/22/18 Time Initiated: 22:33 Assessment reference: NA Status: Active Ineffective Coping Date Initiated: 12/22/18 Time Initiated: 22:33 Assessment reference: NA Status: Active Social Isolation Date Initiated: 12/22/18 Time Initiated: 22:33 Assessment reference: NA Status: Active Treatment assets and liabiliti Patient Assests: adapts well, cooperative, educated, insightful, resourceful, self-reliant, ADL independent, negotiates basic needs, good past tx response, cognitively intact Patient Liabilities: live alone, financial problems, poor support system, medical problems - Milieu Protocol Maintain good personal hygiene: daily Encourage regular showers, daily Remind patient to perform daily oral care, daily Assist patient to perform ADL's Conduct patient checks and document Observation sheet: 1:1 (Pt has suicidal ideation and unable to contract for safety) Maintain personal safety: every shift Educate patient to report safety concerns to staff, every shift Monitor environment for contraband/sharps Medication safety: Monitor for expected outcome, potential side effects: every shift, Assess barriers to learning: every shift, Assess readiness for medication education: every shift <Cate Moody - Last Filed: 12/24/18 11:01> - Diagnosis (1) Bipolar disorder Status: Acute Interventions: Medication management, Individual and group therapy, Psychoeducation 12/24/18 11:02 (2) Borderline personality disorder Status: Acute Interventions: Medication management, Individual and group therapy, Psychoeducation 12/24/18 11:02 <Roshan Edmonds - Last Filed: 12/25/18 08:31> Family Contact Family involvement: Famliy/SO not involved Family contact: Patient declines to allow family contact at present Family contact name: Pt refused. - Goals for Treatment Patient goals for treatment: Pt would like to be connected to a therapist following discharge so that he can continue to work through his depression and be better monitored for manic episodes. Pt would also like to be restarted on medications to stabilize his mood. Discharge/Continuing Care - Education Needs Education Needs: Patient Medication, Patient Diagnosis/Disease Process, Patient Coping Skills, Patient Aftercare Safety Plan - Discharge Discharge Criteria: Tolerates medication w/o severe side effects, Free of Suicidal thoughts, Free of agitation, Normal sleep pattern, Ability to care for self, Reduction of target symptoms Discharge to:: Home - Treatment Team Participation Patient/Family/SO Statement: 12/25/18 08:24 Pt seen in team on 12/24/18. Pt reported that he is feeling "nervous tension." Pt reported that his sleep has improved immensely since admission. Pt did verbalize remorse for his suicide attempt. Pt reported his MDD and the "falling down the rabbit hole" of coming off his manic episode. Pt presented as calm, superficial and guarded. Dr. Moody reported that pt would need to stay until Saturday, 12/29, due to the severity of his attempt. Pt seemed disgruntled by this timeline. Risperdal discussed along with possible increase to 2mg. Pt preoccupied with fear of taking too much medication. Pt did report that he is motivated to engage in outpatient treatment following discharge. Pt denied current SI/HI and AVT hallucinations. Pt is oriented X4. Pt lacks insight and judgment into his illness and the need to comply with outpt treatment. Discussed with Family/SO: No Was Patient/Family/SO present at Treatment Team Meeting: Yes
[2018-12-23 06:53] LABS: IRON 223 ug/dL (49-181)
[2018-12-23 07:04] LABS: % IRON SATURATION 69 % (20-55); TOTAL IRON BINDING CAPACITY 322 ug/dL (250-450)
--- NOTE | 2018-12-23 09:29 | CP.PCM.CON ---
<Maxi Witt - Last Filed: 12/23/18 13:09> History of Present Illness - History of Present Illness History of Present Illness: Medicine consult 63 yr old M with PMHx of NIDDM type 2, Bipolar disorder Type 1, depression, hypertension and multiple suicide attempts brought into ED by EMS after attempted suicide. Patient states he is tired of dealing with his bipolar disorder and so he took multiple pills to end his life, he then called 911 to let them know that was the last time. Patient reports taking 1 tab of aspirin 81mg, 5 tabs of citalopram 30mg, 4 tabs of metoprolol 50 mg, 5 tabs of rosuvastatin 40mg. Patient denies SOB, weakness, nausea, vomiting, chest pain, visual changes or palpitations. Reports he feels well and would just like to see a psychiatrist. Patient states he missed his last visit with his psychiatrist and stopped taking his prescribed medication. Currently denies any SI/HI, auditory/visual hallucinations. No other complaints/concerns. ROS: 12 points reviewed, found to be negative -PMD: Dr. Carter Stringer at [facility] ([phone]) -Psychiatrist: Dr. Antelmo Hernandez ([phone]) -Manufacturing Mechanic: Dr. Leo Scott ([phone]) PMHx: NIDDM type 2, Bipolar disorder Type 1, depression, hypertension and multiple suicide attempts SurgHx: none FMHx: non contributory SocHx: denies tobacco and drugs, occasional Etoh Medications: see med rec Allergies: NKDA Past Patient History - Past Medical History & Family History Past Medical History?: Yes - Past Social History Smoking Status: Current Some Days Smoker - CARDIAC Hx Hypercholesterolemia: No Hx Hypertension: Yes (since 1984) - PULMONARY Hx Respiratory Disorders: No Hx Tuberculosis: No - NEUROLOGICAL Hx Seizures: No - HEENT Hx HEENT Problems: No - RENAL Hx Chronic Kidney Disease: No - ENDOCRINE/METABOLIC Hx Endocrine Disorders: Yes Hx Diabetes Mellitus Type 2: Yes (1979) - HEMATOLOGICAL/ONCOLOGICAL Hx Human Immunodeficiency Virus (HIV): No - INTEGUMENTARY Hx Dermatological Problems: No - MUSCULOSKELETAL/RHEUMATOLOGICAL Hx Musculoskeletal Disorders: No - GASTROINTESTINAL Hx Gastrointestinal Disorders: No - GENITOURINARY/GYNECOLOGICAL Hx Sexually Transmitted Disorders: No - PSYCHIATRIC Hx Substance Use: No - SURGICAL HISTORY Hx Surgeries: Yes Hx Cardiac Catheterization: Yes - ANESTHESIA Hx Anesthesia: Yes Hx Anesthesia Reactions: No Meds Allergies/Adverse Reactions: Allergies Allergy/AdvReac Type Severity Reaction Status Date / Time No Known Allergies Allergy Verified 08/19/17 07:32 - Medications Medications: Current Medications Acetaminophen (Tylenol 325mg Tab) 650 mg PO Q4 PRN PRN Reason: Pain, moderate (4-7) Al Hydrox/Mg Hydrox/Simethicone (Maalox Plus 30 Ml) 30 ml PO Q4 PRN PRN Reason: Dyspepsia Aspirin (Aspirin Chewable) 81 mg PO DAILY [facility] Bismuth Subsalicylate (Pepto-Bismol) 524 mg PO Q4 PRN PRN Reason: Diarrhea Citalopram Hydrobromide (Celexa) 40 mg PO DAILY [facility] Clonazepam (Klonopin) 1 mg PO TID PRN PRN Reason: Anxiety Lorazepam (Ativan) 0.5 mg PO HS PRN PRN Reason: Insomnia Stop: 01/05/19 22:21 Last Admin: 12/23/18 01:57 Dose: 0.5 mg Lorazepam (Ativan) 0.5 mg PO Q6 PRN PRN Reason: Anixety/Agitation Stop: 01/05/19 22:21 Magnesium Hydroxide (Milk Of Magnesia) 30 ml PO HS PRN PRN Reason: Constipation Mirtazapine (Remeron) 30 mg PO HS [facility] Physical Exam - Constitutional Appears: Non-toxic, No Acute Distress - Head Exam Head Exam: ATRAUMATIC, NORMOCEPHALIC - Eye Exam Eye Exam: EOMI, PERRL - ENT Exam ENT Exam: Mucous Membranes Moist - Respiratory Exam Respiratory Exam: Clear to Auscultation Bilateral, NORMAL BREATHING PATTERN. absent: Rales, Rhonchi, Wheezes - Cardiovascular Exam Cardiovascular Exam: REGULAR RHYTHM, RRR, +S1, +S2. absent: Tachycardia, JVD, Rubs, Systolic Murmur - GI/Abdominal Exam GI & Abdominal Exam: Normal Bowel Sounds, Soft - Neurological Exam Neurological exam: Alert, Oriented x3 - Psychiatric Exam Psychiatric exam: Depressed, Flat Affect - Skin Skin Exam: Dry, Intact Results - Vital Signs Recent Vital Signs: Last Vital Signs Temp Pulse Resp 20 12/22/18 22:29 BP Pulse Ox - Labs Labs: Laboratory Results - last 24 hr 12/23/18 12/23/18 12/23/18 06:15 06:15 06:15 Iron 223 H TIBC 322 % Saturation 69 H Ferritin Triglycerides 221 H D Cholesterol 169 LDL Cholesterol Direct 80 HDL Cholesterol 43 Vitamin B12 782 Free T4 0.82 Thyroxine (T4) 6.49 TSH 3rd Generation 5.83 H 12/23/18 06:39 Iron TIBC % Saturation Ferritin 101.0 Triglycerides Cholesterol LDL Cholesterol Direct HDL Cholesterol Vitamin B12 Free T4 Thyroxine (T4) TSH 3rd Generation Assessment & Plan - Assessment and Plan (Free Text) Assessment: 63 yr old M with PMHx of NIDDM type 2, Bipolar disorder Type 1, depression, hypertension and multiple suicide attempts brought into ED by EMS after attempted suicide. Now admitted to [facility] floor for further evaluation and management. Plan: Suicide attempt/Bipolar/Depression -management as per psych team NIDDM -chronic, uncontrolled -HBA1C: 9.7 -moderate carbohydrate diet -accuchecks, insulin coverage scale -c/w home medications, metformin added Hypertension -chronic, controlled -monitor BP -c/w home medications Hyperlipidemia -c/w home statin therapy Elevated TSH: -TSH on presentation 1.59, now >5 -normal T4 -repeat TSH in am will continue to follow patient while they remain in house. <Adam Menendez - Last Filed: 12/23/18 14:38> Meds - Medications Medications: Current Medications Acetaminophen (Tylenol 325mg Tab) 650 mg PO Q4 PRN PRN Reason: Pain, moderate (4-7) Al Hydrox/Mg Hydrox/Simethicone (Maalox Plus 30 Ml) 30 ml PO Q4 PRN PRN Reason: Dyspepsia Aspirin (Aspirin Chewable) 81 mg PO DAILY [facility] Last Admin: 12/23/18 12:51 Dose: 81 mg Atorvastatin Calcium (Lipitor) 80 mg PO DAILY [facility] Last Admin: 12/23/18 12:53 Dose: 80 mg Bismuth Subsalicylate (Pepto-Bismol) 524 mg PO Q4 PRN PRN Reason: Diarrhea Citalopram Hydrobromide (Celexa) 40 mg PO DAILY [facility] Last Admin: 12/23/18 12:51 Dose: 40 mg Clonazepam (Klonopin) 1 mg PO TID [facility] Last Admin: 12/23/18 12:51 Dose: 1 mg Ezetimibe (Zetia) 10 mg PO DAILY [facility] Last Admin: 12/23/18 12:52 Dose: 10 mg Glipizide (Glucotrol Xl) 5 mg PO BID [facility] Last Admin: 12/23/18 12:52 Dose: 5 mg Magnesium Hydroxide (Milk Of Magnesia) 30 ml PO HS PRN PRN Reason: Constipation Metformin HCl (Glucophage) 850 mg PO BIDWM [facility] Metoprolol Tartrate (Lopressor) 50 mg PO DAILY [facility] Last Admin: 12/23/18 12:52 Dose: 50 mg Mirtazapine (Remeron) 30 mg PO HS [facility] Risperidone (Risperdal Tab) 1 mg PO HS [facility] Results - Vital Signs Recent Vital Signs: Last Vital Signs Temp 97.8 F 12/23/18 08:00 Pulse 74 12/23/18 12:52 Resp 19 12/23/18 08:00 BP 129/84 12/23/18 12:52 Pulse Ox - Labs Labs: Laboratory Results - last 24 hr 12/23/18 12/23/18 12/23/18 05:41 06:15 06:15 POC Glucose (mg/dL) 205 H Hemoglobin A1c Iron 223 H TIBC 322 % Saturation 69 H Ferritin Triglycerides 221 H D Cholesterol 169 LDL Cholesterol Direct 80 HDL Cholesterol 43 Vitamin B12 782 Free T4 Thyroxine (T4) 6.49 TSH 3rd Generation 5.83 H 12/23/18 12/23/18 12/23/18 06:15 06:15 06:39 POC Glucose (mg/dL) Hemoglobin A1c 9.7 H Iron TIBC % Saturation Ferritin 101.0 Triglycerides Cholesterol LDL Cholesterol Direct HDL Cholesterol Vitamin B12 Free T4 0.82 Thyroxine (T4) TSH 3rd Generation Attending/Attestation - Attestation I have personally seen and examined this patient.: Yes I have fully participated in the care of the patient.: Yes I have reviewed all pertinent clinical information: Yes Notes (Text): 12/23/18 14:37 Patient seen and examined with resident. Case discussed and agreed with assessment.
--- NOTE | 2018-12-23 10:42 | PCM.PSYCH ---
Initial Psychiatric Evaluation - Initial Psychiatric Evaluation Type of Admission: Voluntary Legal Status: Capacity Chief Complaint (in patient's own words): "I tried to kill myself." Patient's Reaction to Hospitalization: HPI: 63 yo male w/ h/o Bipolar Disorder and Borderline Personality Disorder, presents s/p intentional overdose of Aspirin, Celexa, Metoprolol, Rosvastatin with intent to kill himself. He reports worsening depression, anxiety, mood lability, irritability, poor sleep/appetite and hopelessness. He reports that he has not been able to take Abilify for the past 2 months due to the cost of the medication. Denies acute A/VH/paranoia/delusions. PMHx: DM, HTN, HLD, HTN, h/o AR ALL: NKDA PPHx: Outpatient psychiatric treatment w/ Dr. Prashant Hernandez; reports that he is prescribed Celexa 40 mg PO Daily, Klonopin 1 mg PO TID, Remeron 30 mg PO HS, Ambien 10 mg PO HS PRN insomnia and Abilify 2 mg PO HS; He reports >10 psychiatric hospitalizations and >10 suicide attempts in the past; he also has a history of treatment w/ Depakote and [facility], but he refuses to take these medications due to adverse reactions in the past SHx: Lives alone, denies drugs/etoh/cig use Current Medications: Active Medications Generic Name Dose Route Start Last Admin Trade Name Freq PRN Reason Stop Dose Admin Acetaminophen 650 mg 12/22/18 22:20 Tylenol 325mg Tab PO Q4 PRN Pain, moderate (4-7) Al Hydrox/Mg Hydrox/Simethicone 30 ml 12/22/18 22:20 Maalox Plus 30 Ml PO Q4 PRN Dyspepsia Aspirin 81 mg 12/23/18 09:00 Aspirin Chewable PO DAILY [facility] Bismuth Subsalicylate 524 mg 12/22/18 22:20 Pepto-Bismol PO Q4 PRN Diarrhea Citalopram Hydrobromide 40 mg 12/23/18 09:00 Celexa PO DAILY [facility] Clonazepam 1 mg 12/23/18 07:54 Klonopin PO TID PRN Anxiety Lorazepam 0.5 mg 12/22/18 22:20 12/23/18 01:57 Ativan PO 01/05/19 22:21 0.5 mg HS PRN Administration Insomnia Lorazepam 0.5 mg 12/22/18 22:20 Ativan PO 01/05/19 22:21 Q6 PRN Anixety/Agitation Magnesium Hydroxide 30 ml 12/22/18 22:20 Milk Of Magnesia PO HS PRN Constipation Mirtazapine 30 mg 12/23/18 22:00 Remeron PO HS [facility] Past Psychiatric History - Past Psychiatric History Previous Treatment History: Inpatient Pertinent Medical Hx (Current Medical&Sleep Prob, Allergies): Allergies Allergy/AdvReac Type Severity Reaction Status Date / Time No Known Allergies Allergy Verified 08/19/17 07:32 Aspirin [Aspirin Chewable] 81 mg PO DAILY 08/19/17 Glipizide [Glipizide Xl] 5 mg PO BID 08/19/17 Metoprolol Tartrate [Lopressor] 50 mg PO DAILY 08/19/17 Mirtazapine [Remeron] 30 mg PO HS PRN 08/19/17 Rosuvastatin Calcium [Crestor] 40 mg PO DAILY 08/19/17 Zolpidem [Ambien] 10 mg PO HS PRN 08/19/17 metFORMIN [glucOPHAGE] 750 mg PO BID tab 08/22/17 ARIPiprazole [Abilify] 1 tab PO DAILY 12/22/18 ARIPiprazole [Abilify] 2 mg PO DAILY 12/22/18 Candesartan Cilexetil [Atacand] 12/22/18 Citalopram [celeXA] 3 tab PO DAILY 12/22/18 Clonazepam [Klonopin] 1 tab PO TID 12/22/18 Ezetimibe [Zetia] 1 tab PO DAILY 12/22/18 Review of Systems - Psychiatric Psychiatric: As Per HPI, Abnormal Sleep Pattern, Anhedonia, Anxiety, Change in Appetite, Depression, Difficulty Concentrating, Irritability, Panic Attacks, Suicidal Ideation Mental Status Examination - Personal Presentation Personal Presentation: Looks stated age - Affect Affect: Constricted, Depressed - Motor Activity Motor Activity: Calm - Reliability in Providing Information Reliability in Providing Information: Good - Speech Speech: Organized, Coherent - Mood Mood: Depressed, Anxious - Formal Thought Process Formal Thought Process: No Impairment - Hallucinations/Delusions Additional comments: No AH/VH/paranoia/delusions - Obsessions/Compulsions Obsessions: No Compulsions: No - Cognitive Functions Orientation: Person, Place, Situation, Time Sensorium: Alert Attention/Concentration: Attentive Estimate of Intelligence: Average Judgement: Intact, as evidence by: Insight regarding need for hospitalization Memory: Recent intact, as evidence by: Ability to recall events of the day, Remote intact, as evidenced by: Abilit to recall sig. life events, Remote intact, as evidenced by: Ability to recall historical events - Risk Risk: Suicidal - Strength & Assets Inventory Strength & Assets Inventory: Cooperative - Limitations Limitations: Living alone DSM 5 DX - DSM 5 DSM 5 Diagnosis: Bipolar Disorder; Borderline Personality Disorder - Recommended/Plan of Treatment Treatment Recommendations and Plan of Treatment: Bipolar Disorder; Borderline Personality Disorder -Admit to psychiatry unit -Restart Winston Grijalva Klonopin -Start Risperdal -Individaul and group therapy -Medicine consult -Psychoeducation -Disposition planning Projected ELOS: 7-10 days Discharge Plan and Discharge Criteria: Discharge when patient is psychiatrically stable - Smoking Cessation Smoking Cessation Initiated: No Reason for not providing: Not indicated
[2018-12-23] MEDS: GlipiZIDE 5 mg SR Tab PO SCH ×2 (12:52→16:19)
[2018-12-23 21:48] LABS: FOLATE 19.9 ng/mL
[2018-12-24] MEDS: GlipiZIDE 5 mg SR Tab PO SCH ×2 (08:36→16:16)
--- NOTE | 2018-12-24 10:07 | PCM.PYCHPN ---
Psychiatric Progress Note - Psychiatric Progress Note Patient seen today, length of contact: Pt evaluated, case discussed w/ team, chart reviewed Patient Chief Complaint: Depression Problems Identified/Issues Discussed: Patient reports that he continues to feel depressed and anxious. He denies current adverse effects to medications. He continues to have mood lability. He reports that his sleep is improving. He discussed his recent suicide attempt and expressed remorse that he tried to kill himself. He denies acute suicidal ideation/plan/intent. Medication Change: No Medical Record Reviewed: Yes Consults ordered or reviewed: Medicine consult Mental Status Examination - Cognitive Function Orientation: Person, Place, Situation, Time Memory: Intact Attention: WNL Concentration: WNL Association: WNL Fund of Knowledge: WNL - Mood Mood: Depressed, Anxious - Affect Affect: Constricted, Depressed - Speech Speech: Appropriate - Formal Thought Process Formal Thought Process: No Impairment Psychotic Thoughts and Behaviors: Denies acute AH/VH/paranoia - Suicidal Ideation Suicidal Ideation: No - Homicidal Ideation Homicidal Ideation: No Goal/Treatment Plan - Goal/Treatment Plan Need for Continued Stay: Remain at risks for inpatient hospitalization, Severe depression anxiety Progress Toward Problem(s) and Goals/Treatment Plan: Bipolar Disorder; Borderline Personality Disorder -Continue Celexa, Remeron, Klonopin -Continue Risperdal -Individual and group therapy -Medicine consult -Psychoeducation -Disposition planning Estimated Date of D/C: 12/29/18
[2018-12-25] MEDS: GlipiZIDE 5 mg SR Tab PO SCH ×2 (08:11→16:59)
--- NOTE | 2018-12-25 12:23 | PCM.PYCHPN ---
Psychiatric Progress Note - Psychiatric Progress Note Patient seen today, length of contact: Pt evaluated, case discussed w/ team, chart reviewed Patient Chief Complaint: Depression Problems Identified/Issues Discussed: Patient discussed his multiple past suicide attempts. We discussed his triggers and coping strategies to deal with stress and depression. He continues to report feeling depressed, anxious, hopeless and irritable. He denies acute suicidal ideation/plan/intent. Medication Change: Yes (Increase Risperdal) Medical Record Reviewed: Yes Consults ordered or reviewed: Medicine consult Mental Status Examination - Cognitive Function Orientation: Person, Place, Situation, Time Memory: Intact Attention: WNL Concentration: WNL Association: [facility] Fund of Knowledge: [facility] Decription of patient's judgement and insights: Improving I/J - Mood Mood: Depressed, Anxious - Affect Affect: Constricted, Depressed - Speech Speech: Appropriate - Formal Thought Process Formal Thought Process: No Impairment Psychotic Thoughts and Behaviors: Denies acute AH/VH/paranoia - Suicidal Ideation Suicidal Ideation: No - Homicidal Ideation Homicidal Ideation: No Goal/Treatment Plan - Goal/Treatment Plan Need for Continued Stay: Remain at risks for inpatient hospitalization, Severe depression anxiety Progress Toward Problem(s) and Goals/Treatment Plan: Bipolar Disorder; Borderline Personality Disorder -Continue Celexa, Remeron, Klonopin -Increase Risperdal -Individual and group therapy -Medicine consult -Psychoeducation -Disposition planning Estimated Date of D/C: 12/29/18
[2018-12-26] MEDS: GlipiZIDE 5 mg SR Tab PO SCH ×2 (08:25→16:13)
--- NOTE | 2018-12-26 09:53 | PCM.PYCHPN ---
Psychiatric Progress Note - Psychiatric Progress Note Patient seen today, length of contact: Pt evaluated, case discussed w/ team, chart reviewed Patient Chief Complaint: Depression Problems Identified/Issues Discussed: Patient reports that his mood is improving. He feels less depressed and less anxious, but reports that he continues to have mood fluctuations. He denies acute suicidal ideation/plan/intent. Medication Change: No Medical Record Reviewed: Yes Consults ordered or reviewed: Medicine consult Mental Status Examination - Cognitive Function Orientation: Person, Place, Situation, Time Memory: Intact Attention: WNL Concentration: WNL Association: WNL Fund of Knowledge: [facility] Decription of patient's judgement and insights: Improving I/J - Mood Mood: Depressed, Anxious - Affect Affect: Constricted, Depressed - Speech Speech: Appropriate - Formal Thought Process Formal Thought Process: No Impairment Psychotic Thoughts and Behaviors: Denies acute AH/VH/paranoia - Suicidal Ideation Suicidal Ideation: No - Homicidal Ideation Homicidal Ideation: No Goal/Treatment Plan - Goal/Treatment Plan Need for Continued Stay: Remain at risks for inpatient hospitalization, Severe depression anxiety Progress Toward Problem(s) and Goals/Treatment Plan: Bipolar Disorder; Borderline Personality Disorder -Continue Celexa, Remeron, Klonopin -Continue Risperdal -Individual and group therapy -Medicine consult -Psychoeducation -Disposition planning Estimated Date of D/C: 12/29/18
[2018-12-27] MEDS: GlipiZIDE 5 mg SR Tab PO SCH ×2 (09:06→18:40)
--- NOTE | 2018-12-27 11:50 | PCM.PYCHPN ---
Psychiatric Progress Note - Psychiatric Progress Note Patient seen today, length of contact: Pt evaluated, case discussed w/ team, chart reviewed Patient Chief Complaint: less depressed anxious. seen about unit interacting with select peers. at nursing station at times interacting with staff. staff report pt rx adherent. pt denies side effects medications. Problems Identified/Issues Discussed: alteration in mood, alteration in self care Medical Problems: per chart Diagnostic Results: per psychiatry, medicine, nursing, social work, recreational therapy Medication Change: No Medical Record Reviewed: Yes Consults ordered or reviewed: pt being followed by hospitalist Mental Status Examination - Cognitive Function Orientation: Person, Place, Situation, Time Memory: Intact Attention: WNL Concentration: WNL Association: WNL Fund of Knowledge: WNL - Mood Mood: Depressed, Anxious Additional comments: somewhat less - Affect Affect: Constricted, Depressed - Speech Speech: Appropriate - Formal Thought Process Formal Thought Process: No Impairment - Suicidal Ideation Suicidal Ideation: No - Homicidal Ideation Homicidal Ideation: No Goal/Treatment Plan - Goal/Treatment Plan Need for Continued Stay: Remain at risks for inpatient hospitalization, Severe depression anxiety Progress Toward Problem(s) and Goals/Treatment Plan: inpt milieu vital signs and clinical assessment per protocol and per clinical status discharge planning in progress Estimated Date of D/C: 12/29/18 - Smoking Cessation Smoking Cessation Initiated: No Reason for not providing: pt defers
[2018-12-28] MEDS: GlipiZIDE 5 mg SR Tab PO SCH ×2 (08:55→17:59)
[2018-12-28 16:34] VITALS: O2SAT 98
--- NOTE | 2018-12-28 17:02 | PCM.PYCHPN ---
Psychiatric Progress Note - Psychiatric Progress Note Patient seen today, length of contact: Pt evaluated, case discussed w/ team, chart reviewed Patient Chief Complaint: less depressed anxious. seen about unit interacting with select peers. at nursing station at times interacting with staff. staff report pt rx adherent. pt denies side effects medications. Problems Identified/Issues Discussed: alteration in mood, alteration in self care Medical Problems: per chart Diagnostic Results: per psychiatry, medicine, nursing, social work, recreational therapy Medication Change: No Medical Record Reviewed: Yes Consults ordered or reviewed: pt being followed by medical team Mental Status Examination - Cognitive Function Orientation: Person, Place, Situation, Time Memory: Intact Attention: WNL Concentration: WNL Association: WNL Fund of Knowledge: WNL - Mood Mood: Depressed, Anxious - Affect Affect: Constricted, Depressed - Speech Speech: Appropriate - Formal Thought Process Formal Thought Process: No Impairment - Suicidal Ideation Suicidal Ideation: No - Homicidal Ideation Homicidal Ideation: No Goal/Treatment Plan - Goal/Treatment Plan Need for Continued Stay: Remain at risks for inpatient hospitalization, Severe depression anxiety Progress Toward Problem(s) and Goals/Treatment Plan: inpt milieu vital signs and clinical assessment per protocol and per clinical status discharge planning in progress Estimated Date of D/C: 12/29/18 - Smoking Cessation Smoking Cessation Initiated: No Reason for not providing: pt defers
[2018-12-29 05:57] VITALS: BP 116/83; PULSE 81; RESP 19; TEMP 98.5
[2018-12-29] MEDS: GlipiZIDE 5 mg SR Tab PO SCH (08:33)
--- NOTE | 2018-12-29 09:25 | PCM.PYCHDC ---
Mental Status Examination - Mental Status Examination Orientation: Person, Place, Situation, Time Memory: Intact Mood: Neutral Affect: Broad Speech: Appropriate Attention: WNL Concentration: WNL Association: WNL Fund of Knowledge: WNL Formal Thought Process: No Impairment Description of patient's judgement and insight: Fair I/J Psychotic Thoughts and Behaviors: Denies acute AH/VH/paranoia Suicidal Ideation: No Current Homicidal Ideation?: No Discharge Summary - Discharge Note Reason for Hospitalization: HPI: 63 yo male w/ h/o Bipolar Disorder and Borderline Personality Disorder, presents s/p intentional overdose of Aspirin, Celexa, Metoprolol, Rosvastatin with intent to kill himself. He reports worsening depression, anxiety, mood lability, irritability, poor sleep/appetite and hopelessness. He reports that he has not been able to take Abilify for the past 2 months due to the cost of the medication. Denies acute A/VH/paranoia/delusions. PMHx: DM, HTN, HLD, HTN, h/o [place] ALL: NKDA PPHx: Outpatient psychiatric treatment w/ Dr. Prashant Hernandez; reports that he is prescribed Celexa 40 mg PO Daily, Klonopin 1 mg PO TID, Remeron 30 mg PO HS, Ambien 10 mg PO HS PRN insomnia and Abilify 2 mg PO HS; He reports >10 psychiatric hospitalizations and >10 suicide attempts in the past; he also has a history of treatment w/ Depakote and Carlyss, but he refuses to take these medications due to adverse reactions in the past SHx: Lives alone, denies drugs/etoh/cig use Laboratory Data: Abnormal Lab Results 12/28/18 12/28/18 12/28/18 11:21 16:11 20:25 POC Glucose (mg/dL) 222 H 232 H 233 H 12/29/18 05:39 POC Glucose (mg/dL) 155 H Consultations:: List each consultation separately and include: 1. Reason for request. 2. Findings. 3. Follow-up Consultations: Medicine consult Summary of Hospital Course include:: 1. Description of specific treatment plan utilized for patients during their course of treatmen. 2. Summarize the time- course for resolution of acute symptoms and/or regressed behaviors. 3. Describe issues identified and worked on during hospitalization. 4. Describe medication utilized. 5. Describe medical problems identified and treated. 6. Reassessment of suicide risk Summary of Hospital Course: Patient was admitted to the psychiatry unit. Individual and group therapy were provided. Patient was stabilized on Celexa 40 mg PO Daily, Remeron 30 mg PO HS, Klonopin 1 mg PO TID, and Risperdal 2 mg PO HS. He denies acute depression/anxiety/AH/VH/paranoia/delusions/SI/HI. We discussed coping strategies to deal with stress and depression. Patient informed to call 911, go to the [facility] ER or call/go to his doctor if he has suicidal thoughts in the future. He is psychiatrically stable for discharge with continued outpatient psychiatric follow-up. - Diagnosis (1) Bipolar disorder Current Visit: Yes Status: Acute (2) Borderline personality disorder Current Visit: Yes Status: Acute - Final Diagnosis (DSM 5) Condition upon Discharge: STABLE DSM 5: Bipolar Disorder; Borderline Personality Disorder Disposition: HOME/ ROUTINE Follow-up Treatment Plan: Bipolar Disorder; Borderline Personality Disorder -Discharge with continued outpatient follow-up Prescriptions/Medication Reconciliation: risperiDONE [RisperDAL Tab] 2 mg PO HS #30 tab - Smoking Cessation Smoking Cessation Medication prescribed: No Reason for not providing: Not indicated - Antipsychotic Medications Pt discharged on 2 or more routine antipsychotic medications: No
== END 2018-12-29 14:15 | disposition home or self-care (01) | DRG 885 ==
LOC: H.STEP 21:59
PROVIDERS: ADMIT Psychiatry & Neurology Psychiatry
PROC: GZHZZZZ Group Psychotherapy (ICD-10-PCS; principal; 2018-12-22)
DX: F31.9 Bipolar disorder, unspecified (principal); E78.5 Hyperlipidemia, unspecified; I10 Essential (primary) hypertension; I25.2 Old myocardial infarction; E11.65 Type 2 diabetes mellitus with hyperglycemia; F60.3 Borderline personality disorder; F17.200 Nicotine dependence, unspecified, uncomplicated